=== PATIENT | female | born 1965 | race Hispanic/Latino ===

== ENCOUNTER 2020-05-24 09:58 | Emergency (ER) | payer SELFPAY ==
[2020-05-24] MEDS ORDERED: ONDANSETRON 4 MG/2 ML INJ IV ONE (17:12)
[2020-05-24] MEDS ORDERED: MORPHINE 4 MG/1 ML INJ IV ONE (17:12)
[2020-05-24] MEDS ORDERED: SODIUM CHLORIDE 0.9% 1000 ML 1,000 ML IV ONE (17:12)
--- NOTE | 2020-05-24 17:56 | Emergency Department Report ---
ED General Adult HPI - General Chief complaint: Pain General Stated complaint: CANT EAT/COUGH/FEVER Time Seen by Provider: 05/24/20 16:53 Source: patient Mode of arrival: Ambulatory Limitations: No Limitations - History of Present Illness Initial comments: The patient presents to the emergency department with a chief complaint of having a cough that has been present since the middle of March as well as vomiting up types of food that started 2 to 3 days ago. Patient states that in the middle of March she was tested for COVID-19 with a result being returned as positive. Patient states she quarantine except for 14 days and return to her baseline but then last she began to have some congestion and a cough and contacted [place] [facility] via teleconference appointment and was told that she had a sinus infection and was started on 2000 mg amoxicillin daily. Patient also complains of having some abdominal pain and vomiting up chunks of f ood that started a couple days ago. Patient states that she is talked to her bariatric surgeon and there was concerned that she might have an issue with her LAP-BAND thus to told her to come to the emergency department. The patient states that she also has had a return of a cough over the last couple of days and that is concerning for her as well. Patient also complains of some chest tightness but denies shortness of breath. -: Gradual Location: chest, abdomen Radiation: non-radiation Severity scale (0 -10): 5 Quality: aching Improves with: none Worsens with: none Associated Symptoms: nausea/vomiting Treatments Prior to Arrival: none - Related Data Previous Rx's Medication Instructions Recorded Last Taken Type Albuterol Mdi (or & Nicu Only) 2 puff IH Q4HR PRN #1 inhalation 05/24/20 Unknown Rx [ProAir HFA Inhaler] Benzonatate [Tessalon Perles] 100 mg PO Q8HR PRN #20 capsule 05/24/20 Unknown Rx Pantoprazole [Protonix] 40 mg PO QDAY #30 tablet 05/24/20 Unknown Rx Allergies Allergy/AdvReac Type Severity Reaction Status Date / Time No Known Allergies Allergy Verified 05/24/20 09:59 ED Review of Systems ROS: Stated complaint: CANT EAT/COUGH/FEVER Other details as noted in HPI Constitutional: denies: chills, fever Eyes: denies: eye pain, eye discharge, vision change ENT: denies: ear pain, throat pain Respiratory: cough. denies: shortness of breath, wheezing Cardiovascular: denies: chest pain, palpitations Endocrine: no symptoms reported Gastrointestinal: abdominal pain, nausea, vomiting. denies: diarrhea Genitourinary: denies: urgency, dysuria, discharge Musculoskeletal: denies: back pain, joint swelling, arthralgia Skin: denies: rash, lesions Neurological: denies: headache, weakness, paresthesias Psychiatric: denies: anxiety, depression Hematological/Lymphatic: denies: easy bleeding, easy bruising ED Past Medical Hx - Past Medical History Previous Medical History?: Yes Hx Hypertension: Yes - Surgical History Past Surgical History?: Yes Additional Surgical History: gallbladder lapband - Social History Smoking Status: Never Smoker Substance Use Type: None - Medications Home Medications: Home Medications Medication Instructions Recorded Confirmed Last Taken Type Albuterol Mdi (or & Nicu Only) 2 puff IH Q4HR PRN #1 inhalation 05/24/20 Unknown Rx [ProAir HFA Inhaler] Benzonatate [Tessalon Perles] 100 mg PO Q8HR PRN #20 capsule 05/24/20 Unknown Rx Pantoprazole [Protonix] 40 mg PO QDAY #30 tablet 05/24/20 Unknown Rx ED Physical Exam - General Limitations: No Limitations General appearance: alert, in no apparent distress - Head Head exam: Present: atraumatic, normocephalic - Eye Eye exam: Present: normal appearance, PERRL, EOMI - ENT ENT exam: Present: mucous membranes moist - Neck Neck exam: Present: normal inspection - Respiratory Respiratory exam: Present: normal lung sounds bilaterally. Absent: respiratory distress - Cardiovascular Cardiovascular Exam: Present: regular rate, normal rhythm. Absent: systolic murmur, diastolic murmur, rubs, gallop - GI/Abdominal GI/Abdominal exam: Present: soft, normal bowel sounds. Absent: distended, tenderness - Extremities Exam Extremities exam: Present: normal inspection - Back Exam Back exam: Present: normal inspection - Neurological Exam Neurological exam: Present: alert, oriented X3, CN II-XII intact. Absent: motor sensory deficit - Psychiatric Psychiatric exam: Present: normal affect, normal mood - Skin Skin exam: Present: warm, dry, intact, normal color. Absent: rash ED Course Vital Signs 05/24/20 05/24/20 05/24/20 10:00 17:10 17:12 Temperature 98.3 F 98.8 F Pulse Rate 91 H 82 Respiratory 16 18 22 Rate Blood Pressure 153/95 Blood Pressure 156/86 [Right] O2 Sat by Pulse 96 96 96 Oximetry 05/24/20 05/24/20 05/24/20 18:00 18:13 18:43 Temperature Pulse Rate 69 Respiratory 22 18 16 Rate Blood Pressure 133/73 Blood Pressure [Right] O2 Sat by Pulse 96 Oximetry 05/24/20 05/24/20 19:00 20:16 Temperature Pulse Rate 64 66 Respiratory 20 20 Rate Blood Pressure 123/65 123/65 Blood Pressure [Right] O2 Sat by Pulse 93 97 Oximetry ED Medical Decision Making - Lab Data Result diagrams: 05/24/20 17:47 05/24/20 17:47 Lab Results 05/24/20 05/24/20 Range/Units 17:47 17:47 WBC 13.7 H (4.5-11.0) K/mm3 RBC 4.21 (3.65-5.03) M/mm3 Hgb 10.8 (10.1-14.3) gm/dl Hct 33.6 (30.3-42.9) % MCV 80 (79-97) fl MCH 26 L (28-32) pg MCHC 32 (30-34) % RDW 15.7 H (13.2-15.2) % Plt Count 379 (140-440) K/mm3 Lymph % (Auto) 20.0 (13.4-35.0) % Garza % (Auto) 6.4 (0.0-7.3) % Eos % (Auto) 0.7 (0.0-4.3) % Baso % (Auto) 0.6 (0.0-1.8) % Lymph # 2.7 (1.2-5.4) K/mm3 Garza # 0.9 H (0.0-0.8) K/mm3 Eos # 0.1 (0.0-0.4) K/mm3 Baso # 0.1 (0.0-0.1) K/mm3 Seg Neutrophils % 72.3 H (40.0-70.0) % Seg Neutrophils # 9.9 H (1.8-7.7) K/mm3 Sodium 141 (137-145) mmol/L Potassium 3.3 L (3.6-5.0) mmol/L Chloride 102.1 (98-107) mmol/L Carbon Dioxide 25 (22-30) mmol/L Anion Gap 17 mmol/L BUN 6 L (7-17) mg/dL Creatinine 0.8 (0.6-1.2) mg/dL Estimated GFR > 60 ml/min BUN/Creatinine Ratio 8 % Glucose 104 H (65-100) mg/dL Calcium 9.1 (8.4-10.2) mg/dL Magnesium 2.30 (1.7-2.3) mg/dL Total Bilirubin 0.30 (0.1-1.2) mg/dL AST 11 (5-40) units/L ALT 9 (7-56) units/L Alkaline Phosphatase 72 (35-129) units/L Troponin T < 0.010 (0.00-0.029) ng/mL NT-Pro-B Natriuret Pep 139.3 (0-900) pg/mL Total Protein 7.3 (6.3-8.2) g/dL Albumin 3.6 L (3.9-5) g/dL Albumin/Globulin Ratio 1.0 % Lipase 19 (13-60) units/L - Radiology Data Radiology results: report reviewed - Medical Decision Making Received a phone call from the radiologist with concerns of the patient still having signs of COVID on her CAT scan. It was also discussed that the patient's lap band is in good position but there is a small residual hernia and mild wall thickening at the distal esophagus Discussed results with patient including findings of the CT scan and that there was still findings consistent with Kovic Spoke to the on-call surgeon who is Dr. Jones who suggested that the patient start a PPI and to follow clear liquid diet for the next 7 days and to follow-up in the office with the funeral driver This was discussed with the patient and she told me that she was already taking Nexium and Prilosec and at this time I discussed with her to stop the Nexium and we will start Protonix. Patient was in agreement with that. Patient also states she understands the need to follow-up in office in 7 days and to follow clear liquid diet Patient also be given something for the cough and an inhaler. Critical care attestation.: If time is entered above; I have spent that time in minutes in the direct care of this critically ill patient, excluding procedure time. ED Disposition Clinical Impression: Esophagitis, COVID-19 Disposition: DC-01 TO HOME OR SELFCARE Is pt being admited?: No Does the pt Need Aspirin: No Condition: Stable Instructions: COVID-19, Clear Liquid Diet (ED) Additional Instructions: Please follow a clear liquid diet as we discussed Please follow-up with the the information provided to you in 7 days with a funeral driver at the surgeon's office Please switch from Nexium to Protonix as discussed Prescriptions: Albuterol Mdi (or & Nicu Only) [ProAir HFA Inhaler] 2 puff IH Q4HR PRN #1 inhalation PRN Reason: Shortness Of Breath Pantoprazole [Protonix] 40 mg PO QDAY #30 tablet Benzonatate [Tessalon Perles] 100 mg PO Q8HR PRN #20 capsule PRN Reason: Cough Referrals: PRIMARY CARE, [Primary Care Provider] - 3-5 Days DORIS JONES DO [Staff Physician] - 05/31/20 Time of Disposition: 21:54
--- NOTE | 2020-05-24 18:11 | XRay Report ---
CHEST 1 VIEW INDICATION / CLINICAL INFORMATION: cough. COMPARISON: None available. FINDINGS: SUPPORT DEVICES: None. HEART / MEDIASTINUM: No significant abnormality. LUNGS / PLEURA: No significant pulmonary or pleural abnormality. No pneumothorax. ADDITIONAL FINDINGS: No significant additional findings. IMPRESSION: 1. No acute findings. Signer Name: Zachary Thorne MD Signed: 05/24/2020 6:07 PM Workstation Name: [id number]
[2020-05-24 19:14] LABS: Basophils # (Auto) 0.1 K/mm3 (0.0-0.1); Basophils % (Auto) 0.6 % (0.0-1.8); Eosinophils # (Auto) 0.1 K/mm3 (0.0-0.4); Eosinophils % (Auto) 0.7 % (0.0-4.3); Hematocrit 33.6 % (30.3-42.9); Hemoglobin 10.8 gm/dl (10.1-14.3); Lymphocytes # (Auto) 2.7 K/mm3 (1.2-5.4); Mean Corpuscular HGB Conc 32 % (30-34); Mean Corpuscular Volume 80 fl (79-97); Monocytes # (Auto) 0.9 K/mm3 (0.0-0.8); Monocytes % (Auto) 6.4 % (0.0-7.3); Platelet Count 379 K/mm3 (140-440); Red Blood Count 4.21 M/mm3 (3.65-5.03); Red Cell Distribution Width 15.7 % (13.2-15.2)
[2020-05-24 19:15] LABS: Alanine Aminotransferase 9 units/L (7-56); Albumin 3.6 g/dL (3.9-5); BUN/Creatinine Ratio 8; Blood Urea Nitrogen 6 mg/dL (7-17); Calcium 9.1 mg/dL (8.4-10.2); Hemolysis Index 4
--- NOTE | 2020-05-24 20:55 | Cat Scan Report ---
CT ABDOMEN AND PELVIS WITH CONTRAST HISTORY: abdominal pain/nausea and vomiting/ h/o lap band. COMPARISON: None. TECHNIQUE: CT images of the abdomen and pelvis were obtained following administration of intravenous contrast. All CT scans at this location are performed using CT dose reduction for ALARA by means of automated exposure control. CONTRAST: 100 ml of intravenous contrast administered. FINDINGS: Lungs/bones: Patchy multifocal groundglass airspace disease in both lung bases. There are degenerati ve changes in the spine and pelvis with no acute osseous abnormality. Abdomen/pelvis: The gallbladder surgically absent. Liver is enlarged and there is mild steatosis. Sp enzo, pancreas, left adrenal gland, and kidneys appear unremarkable. There is a right adrenal nodule measuring 1.8 cm with intermediate attenuation which is homogeneous in appearance but not diagnostic of an adenoma given the attenuation. A gastric lap band is in place, positioned in the proximal stomach. There is a small residual/recurre nt hiatal hernia and there is mild circumferential wall thickening in the distal esophagus/proximal s tomach. There is also fluid within the distal esophagus. No perforation identified. The proximal GI t ract is otherwise unremarkable. Urinary bladder and reproductive organs are unremarkable except for a small simple right ovarian cyst . No pelvic free fluid or acute colonic abnormality identified. IMPRESSION: 1. Gastric lap band as outlined above with small residual/recurrent hiatal hernia, mild wall thickeni ng of the distal esophagus/proximal stomach which may be inflammatory in etiology, and fluid within t he distal esophagus. 2. Patchy multifocal groundglass airspace disease in the lungs. An atypical infectious/inflammatory e tiology such as viral (i.e. Covid) should be considered. 3. Indeterminate right adrenal nodule. Consider adrenal protocol CT on a nonemergent basis for furthe r evaluation. COMMUNICATION: Time of Communication (LUMPIA [employer]ER/CDT): 7:51 PM Licensed Practitioner Receiving Report: Dr. Kunz Signer Name: Dusty Mcintosh MD Signed: 05/24/2020 8:51 PM Workstation Name: [email or web address]
[2020-05-24 22:33] VITALS: BP 125/76
== END 2020-05-24 22:25 | disposition home or self-care (01) ==
LOC: ED 09:58
DX: U07.1 COVID-19 (principal); K20.9 Esophagitis, unspecified; R11.2 Nausea with vomiting, unspecified; R10.9 Unspecified abdominal pain; I10 Essential (primary) hypertension; Z79.899 Other long term (current) drug therapy; Z98.890 Other specified postprocedural states
CPT/HCPCS: 36415; 71045; 74177; 80053; 83690; 83735; 83880; 84484; 85025; 96361; 96374; 96375; 99284; J2270; J2405; J7030; Q9967